=== PATIENT | female | born 1980 | race Caucasian/White ===

== ENCOUNTER 2019-01-11 06:39 | Emergency (ER) | payer OTHER ==
[~2019-01-11] VITALS: Ht 170.1 cm; Wt 121.6 kg
[~2019-01-11 06:39] MED LIST: ALBUTEROL0.09 MG/A2 IH; CIPRO500 MG PO; COMBIVENT1 ARO IH; DOXYCYCLINE MO100 MG PO; EUCERIN1 CRE TP; FIORICET 325 MG1 TAB PO; KEFLEX500 MG PO; MEDROL DOSEPAK4 MG PO; NAPROSYN500 MG PO; ROBITUSSIN AC 10 MG/ PO; TRAMADOL HCL50 MG PO; ULTRAM50 MG PO; VICODIN 5/500 505 MG PO; VOLTAREN50 M1 PO; ZOFRAN ODT4 MG SL; ZOFRAN4 MG PO
== END 2019-01-11 09:09 | disposition home or self-care (01) ==
LOC: ED 06:39
DX: S01.112A Laceration without foreign body of left eyelid and periocular area, initial encounter (principal); G43.909 Migraine, unspecified, not intractable, without status migrainosus; F17.200 Nicotine dependence, unspecified, uncomplicated; Z88.6 Allergy status to analgesic agent; Z91.040 Latex allergy status; Y08.89XA Assault by other specified means, initial encounter; Y93.89 Activity, other specified; Y92.89 Other specified places as the place of occurrence of the external cause; Y99.8 Other external cause status

== ENCOUNTER 2020-01-10 22:33 | Emergency (ER) | payer OTHER ==
[~2020-01-10] VITALS: Ht 170.1 cm; Wt 120.2 kg
[2020-01-10 23:17] LABS: BASO # 0.2 10*3/uL (0.0-0.1); EOS # 1.2 10*3/uL (0.0-0.4); EOS % 8.5 % (1.0-4.0); HEMATOCRIT 38.4 % (37.0-47.0); LYMPH # 3.2 10*3/uL (1.3-4.4); LYMPH % 22.3 % (27.0-41.0); MEAN CELL VOLUME 87.9 fl (81.0-99.0); MEAN CORPUSCULAR HGB 29.3 pg (27.0-31.0); MEAN CORPUSCULAR HGB CONC 33.3 g/dl (33.0-37.0); MEAN PLATELET VOLUME 8.9 fl (9.6-12.3); MONO # 1.1 10*3/uL (0.1-1.0); MONO % 7.8 % (3.0-9.0); NEUT # 8.5 10*3/uL (2.3-7.9); NEUT % 59.6 % (47.0-73.0); PLATELET COUNT AUTOMATED 363 10*3/uL (130-400); RED BLOOD COUNT 4.37 10*6/uL (4.10-5.10); RED CELL DISTRI WIDTH 13.7 % (0-14.5); WHITE BLOOD COUNT 14.3 10*3/uL (4.8-10.8)
[2020-01-10 23:32] LABS: ALBUMIN 3.3 gm/dl (3.1-4.5); ALKALINE PHOSPHATASE 65 U/L (45-117); BUN 9 mg/dl (7-24); CHLORIDE 109 mmol/L (98-107); CREATININE 0.77 mg/dL (0.55-1.02); LIPASE 110 U/L (73-393); POTASSIUM 3.7 mmol/L (3.5-5.1); SGOT/AST 13 IU/L (3-35); SGPT/ALT 30 U/L (12-78); SODIUM 140 mmol/L (136-145); TOTAL PROTEIN 7.3 gm/dL (6.4-8.2)
[2020-01-10 23:47] LABS: BILIRUBIN NEGATIVE (NEGATIVE); BLOOD TRACE-INTACT (NEGATIVE); CLARITY CLEAR (CLEAR); COLOR YELLOW (YELLOW); GLUCOSE NEGATIVE (NEGATIVE); KETONE NEGATIVE (NEGATIVE); NITRITE NEGATIVE (NEGATIVE); SPECIFIC GRAVITY 1.025 (1.005-1.030); UROBILINOGEN 0.2 E.U./dl (0.2-1.0)
[2020-01-10 23:48] LABS: LEUKO ESTERASE NEGATIVE (NEGATIVE)
[2020-01-10 23:53] LABS: BACTERIA 1+; WBC 0-2 wbc/hpf (0-5)
[2020-01-11] MEDS ORDERED: 3-DAY VAGINAL C21 GM V (00:04)
== END 2020-01-11 01:04 | disposition home or self-care (01) ==
LOC: ED 22:33
PROVIDERS: Physician Assistant
DX: S22.32XA Fracture of one rib, left side, initial encounter for closed fracture (principal); B37.3 Candidiasis of vulva and vagina; G43.909 Migraine, unspecified, not intractable, without status migrainosus; E03.9 Hypothyroidism, unspecified; Z88.6 Allergy status to analgesic agent; Z91.040 Latex allergy status; X58.XXXA Exposure to other specified factors, initial encounter; Y93.89 Activity, other specified; Y92.89 Other specified places as the place of occurrence of the external cause; Y99.8 Other external cause status

== ENCOUNTER → 2020-05-07 | Outpatient (CLI) | payer OTHER ==
[~2020-05-07] MED LIST changes: +3-DAY VAGINAL C21 GM V
[2020-05-07 14:17] LABS: HEMATOCRIT 40.4 % (37.0-47.0); MEAN CORPUSCULAR HGB 28.5 pg (27.0-31.0); MEAN CORPUSCULAR HGB CONC 32.4 g/dl (33.0-37.0); MEAN PLATELET VOLUME 8.8 fl (9.6-12.3); RED BLOOD COUNT 4.59 10*6/uL (4.10-5.10); RED CELL DISTRI WIDTH 13.5 % (0-14.5)
[2020-05-07 14:34] LABS: ALBUMIN 3.8 gm/dl (3.1-4.5); ALKALINE PHOSPHATASE 78 U/L (45-117); BUN 12 mg/dl (7-24); CHLORIDE 108 mmol/L (98-107); CHOLESTEROL 233 mg/dL (<200); CREATININE 0.91 mg/dL (0.55-1.02); HDL CHOLESTEROL 35 mg/dl (40-60); LDL CHOLESTEROL 155 mg/dL (9-159); POTASSIUM 3.8 mmol/L (3.5-5.1); SGOT/AST 18 IU/L (3-35); SGPT/ALT 31 U/L (12-78); SODIUM 135 mmol/L (136-145); TOTAL PROTEIN 8.1 gm/dL (6.4-8.2); TRIGLYCERIDES 214 mg/dl (<150); VLDL CHOLESTEROL 43 mg/dL (6-40)
[2020-05-07 14:36] LABS: FREE T4 0.97 ng/dl (0.76-1.46)
[2020-05-07 15:43] LABS: VITAMIN D, 25-HYDROXY 13.4 ng/mL (30-100)
[2020-05-08 09:09] LABS: RHEUMATOID ARTHRITIS FACTOR 11.4 IU/mL (0.0-13.9)
[2020-05-08 10:06] LABS: HEP B CORE AB, IGM Negative (Negative); HEPATITIS B SURFACE AG Negative (Negative); HEPATITIS C VIRUS ANTIBODY 0.5 s/co (0.0-0.9)
[2020-05-09 12:06] LABS: ANTI-DSDNA ANTIBODIES 1 IU/mL (0-9); ANTI-SMOOTH MUSCLE ANTIBODY 14 Units (0-19); SJOGREN ANTI-SS-A <0.2 AI (0.0-0.9); SJOREN AB, ANTI-SS-B <0.2 AI (0.0-0.9)
== END | disposition home or self-care (01) ==
LOC: LAB 13:34
PROVIDERS: ATTEND Family Medicine
DX: M79.10 Myalgia, unspecified site (principal); M10.9 Gout, unspecified; M25.50 Pain in unspecified joint; M54.5 Low back pain; E55.9 Vitamin D deficiency, unspecified

== ENCOUNTER → 2020-10-07 | Outpatient (CLI) | payer OTHER | END | disposition home or self-care (01) | LOC: US 08-29 09:30 | PROVIDERS: ATTEND Nurse Practitioner Family | DX: R10.84 Generalized abdominal pain (principal) ==

== ENCOUNTER → 2020-11-18 | Outpatient (CLI) | payer OTHER | END | disposition home or self-care (01) | LOC: COVID19 09:25 | PROVIDERS: ATTEND Internal Medicine Gastroenterology | DX: Z01.812 Encounter for preprocedural laboratory examination (principal); Z20.822 Contact with and (suspected) exposure to COVID-19 ==

== ENCOUNTER 2021-02-07 14:22 | Inpatient (IN) | payer OTHER ==
[~2021-02-07] VITALS: Ht 170.1 cm; Wt 129.3 kg
[2021-02-07 14:24] VITALS: BP 128/75
[2021-02-07 15:05] LABS: HEMATOCRIT 39.2 % (37.0-47.0); MEAN CELL VOLUME 87.7 fl (81.0-99.0); MEAN CORPUSCULAR HGB 28.4 pg (27.0-31.0); MEAN CORPUSCULAR HGB CONC 32.4 g/dl (33.0-37.0); PLATELET COUNT AUTOMATED 396 10*3/uL (130-400); RED BLOOD COUNT 4.47 10*6/uL (4.10-5.10); RED CELL DISTRI WIDTH 14.3 % (0-14.5); WHITE BLOOD COUNT 22.3 10*3/uL (4.8-10.8)
[2021-02-07 15:20] LABS: ALBUMIN 3.1 gm/dl (3.1-4.5); ALKALINE PHOSPHATASE 66 U/L (45-117); BUN 13 mg/dl (7-24); CHLORIDE 104 mmol/L (98-107); CREATININE 0.83 mg/dL (0.55-1.02); LIPASE 95 U/L (73-393); POTASSIUM 3.5 mmol/L (3.5-5.1); SGOT/AST 10 IU/L (3-35); SGPT/ALT 29 U/L (12-78); SODIUM 137 mmol/L (136-145); TOTAL PROTEIN 7.2 gm/dL (6.4-8.2)
[2021-02-07 15:21] LABS: BASOPHILS 1 % (0-1); TOTAL CELLS COUNTED 100 #CELLS
[2021-02-07 15:22] LABS: PLATELET SUFFICIENCY NORMAL (NORMAL)
[2021-02-07 15:28] LABS: BETA-HCG, QUANT < 1.0 mIU/mL (1-3)
[2021-02-07 15:41] LABS: BILIRUBIN Negative (Negative); BLOOD Negative (Negative); CLARITY Cloudy (Clear); COLOR Yellow (Yellow); GLUCOSE Negative (Negative); KETONE Negative (Negative); LEUKO ESTERASE Negative (Negative); NITRITE Negative (Negative); PH 5.5 (4.5-8.0); SPECIFIC GRAVITY >= 1.030 (1.001-1.030)
[2021-02-07 16:43] LABS: EPITHELIAL CELLS 31-40
[2021-02-07 16:44] LABS: BACTERIA 2+
[2021-02-07 17:16] VITALS: BP 94/51
[2021-02-07 17:31] VITALS: BP 110/69
[2021-02-07 17:46] VITALS: BP 108/70
[2021-02-07 18:01] VITALS: BP 110/64
[2021-02-07 18:16] VITALS: BP 112/66
[2021-02-07] MEDS ORDERED: CYMBALTA60 MG PO (18:41)
[2021-02-07] MEDS ORDERED: NEURONTIN300 MG PO (18:41)
[2021-02-07] MEDS ORDERED: DICYCLOMINE HYD20 MG PO (18:42)
[2021-02-07] MEDS ORDERED: OMEPRAZOLE40 MG PO (18:42)
[2021-02-07] MEDS ORDERED: PREDNISONE10 MG PO (18:43)
[2021-02-07] MEDS ORDERED: AMITRIPTYLINE25 MG PO (18:43)
[2021-02-08] VITALS: BP 120/54
[2021-02-08] MEDS ORDERED: CIPRO500 MG PO (07:27)
[2021-02-08 08:00] VITALS: BP 112/54
[2021-02-08 08:11] LABS: HEMATOCRIT 33.7 % (37.0-47.0); MEAN CELL VOLUME 89.2 fl (81.0-99.0); MEAN CORPUSCULAR HGB 28.3 pg (27.0-31.0); MEAN CORPUSCULAR HGB CONC 31.8 g/dl (33.0-37.0); MEAN PLATELET VOLUME 8.9 fl (9.6-12.3); PLATELET COUNT AUTOMATED 328 10*3/uL (130-400); RED BLOOD COUNT 3.78 10*6/uL (4.10-5.10); RED CELL DISTRI WIDTH 14.3 % (0-14.5); WHITE BLOOD COUNT 25.5 10*3/uL (4.8-10.8)
[2021-02-08 08:58] LABS: BASOPHILS 1 % (0-1); PLATELET SUFFICIENCY NORMAL (NORMAL); TOTAL CELLS COUNTED 100 #CELLS
[2021-02-08 12:00] VITALS: BP 113/82
== END 2021-02-08 13:49 | disposition home health service (06) | DRG 234 ==
LOC: ED 14:22 → 4E 15:49 → EDHOLD 15:49 → 4E 16:49
PROVIDERS: Emergency Medicine; ADMIT Internal Medicine; ATTEND Internal Medicine
PROC: 0DTJ4ZZ Resection of Appendix, Percutaneous Endoscopic Approach (ICD-10-PCS; principal; 2021-02-07)
DX: K35.80 Unspecified acute appendicitis (principal); G89.29 Other chronic pain; G62.9 Polyneuropathy, unspecified; F41.1 Generalized anxiety disorder; Z88.5 Allergy status to narcotic agent; Z91.040 Latex allergy status; Z82.49 Family history of ischemic heart disease and other diseases of the circulatory system

== ENCOUNTER 2021-02-11 21:16 | Emergency (ER) | payer OTHER ==
[~2021-02-11 21:16] MED LIST changes: +AMITRIPTYLINE25 MG PO; +CYMBALTA60 MG PO; +DICYCLOMINE HYD20 MG PO; +NEURONTIN300 MG PO; +OMEPRAZOLE40 MG PO; +PREDNISONE10 MG PO
[2021-02-11 22:40] LABS: HEMATOCRIT 35.2 % (37.0-47.0); MEAN CORPUSCULAR HGB 27.8 pg (27.0-31.0); MEAN CORPUSCULAR HGB CONC 31.5 g/dl (33.0-37.0); PLATELET COUNT AUTOMATED 417 10*3/uL (130-400); RED CELL DISTRI WIDTH 14.2 % (0-14.5); WHITE BLOOD COUNT 20.8 10*3/uL (4.8-10.8)
[2021-02-11 22:58] LABS: ALBUMIN 2.8 gm/dl (3.1-4.5); ALKALINE PHOSPHATASE 87 U/L (45-117); BUN 11 mg/dl (7-24); CHLORIDE 105 mmol/L (98-107); CREATININE 0.86 mg/dL (0.55-1.02); LIPASE 67 U/L (73-393); POTASSIUM 3.7 mmol/L (3.5-5.1); SGOT/AST 14 IU/L (3-35); SGPT/ALT 37 U/L (12-78); SODIUM 135 mmol/L (136-145)
[2021-02-11 23:01] LABS: ATYPICAL LYMPHS 4 % (0-0); BASOPHILS 1 % (0-1); TOTAL CELLS COUNTED 100 #CELLS
[2021-02-11 23:02] LABS: OVALOCYTES FEW; PLATELET SUFFICIENCY HIGH (NORMAL)
[2021-02-11 23:07] LABS: TROPONIN I < 0.015 ng/ml (<0.045)
== END 2021-02-12 03:07 | disposition left against medical advice (07) ==
LOC: ED 21:16
PROVIDERS: Physician Assistant
DX: G89.18 Other acute postprocedural pain (principal); R07.81 Pleurodynia; R06.02 Shortness of breath; M25.511 Pain in right shoulder; E03.9 Hypothyroidism, unspecified; G43.909 Migraine, unspecified, not intractable, without status migrainosus; Z87.42 Personal history of other diseases of the female genital tract; Z90.49 Acquired absence of other specified parts of digestive tract; Z91.040 Latex allergy status; Z88.5 Allergy status to narcotic agent; Z79.2 Long term (current) use of antibiotics; Z79.899 Other long term (current) drug therapy

== ENCOUNTER 2024-04-26 18:46 | Emergency (ER) | payer MEDICARE ==
[~2024-04-26] VITALS: Ht 170.1 cm; Wt 12.2 kg
[2024-04-26] MEDS ORDERED: SODIUM CHLORIDE 0.9% 1,000 ML IV ONE (19:10)
[2024-04-26] MEDS ORDERED: Ondansetron Hydrochloride 4 MG/2 ML VIAL IV ONE (19:10)
[2024-04-26 19:30] LABS: BASO # 0.2 10*3/uL (0.0-0.1); BASO % 1.1 % (0.0-1.0); EOS % 4.7 % (1.0-4.0); HEMATOCRIT 40.3 % (37.0-47.0); LYMPH # 4.1 10*3/uL (1.3-4.4); LYMPH % 20.2 % (27.0-41.0); MEAN CELL VOLUME 87.2 fl (81.0-99.0); MEAN CORPUSCULAR HGB 28.1 pg (27.0-31.0); MEAN CORPUSCULAR HGB CONC 32.3 g/dl (33.0-37.0); MEAN PLATELET VOLUME 8.8 fl (9.6-12.3); MONO # 1.4 10*3/uL (0.1-1.0); MONO % 6.9 % (3.0-9.0); NEUT # 13.5 10*3/uL (2.3-7.9); PLATELET COUNT AUTOMATED 386 10*3/uL (130-400); RED BLOOD COUNT 4.62 10*6/uL (4.10-5.10); RED CELL DISTRI WIDTH 14.1 % (0-14.5); WHITE BLOOD COUNT 20.4 10*3/uL (4.8-10.8)
[2024-04-26 19:38] LABS: BILIRUBIN Negative (Negative); BLOOD Negative (Negative); CLARITY Clear (Clear); COLOR Yellow (Yellow); GLUCOSE Negative (Negative); KETONE Negative (Negative); LEUKO ESTERASE Negative (Negative); NITRITE Negative (Negative); PH 7.5 (4.5-8.0); UROBILINOGEN 0.2 E.U./dl (0.0-1.0)
[2024-04-26 19:47] LABS: BACTERIA 1+; RBC 0-2 rbc/hpf (0-2)
[2024-04-26 19:54] LABS: ALKALINE PHOSPHATASE 64 U/L (46-116); BUN 11 mg/dl (9-23); CHLORIDE 105 mmol/L (98-107); LIPASE 40 U/L (12-53); POTASSIUM 3.8 mmol/L (3.4-5.1); SGPT/ALT 11 U/L (5-49); TOTAL PROTEIN 6.9 gm/dL (6.0-8.0)
[2024-04-26] MEDS ORDERED: VIBRAMYCIN100 MG PO (21:50)
[2024-04-26] MEDS ORDERED: Doxycycline Hyclate 100 MG CAP PO ONE (21:55)
== END 2024-04-26 22:00 | disposition home or self-care (01) ==
LOC: ED 18:46
PROVIDERS: Nurse Practitioner Family
DX: S41.101A Unspecified open wound of right upper arm, initial encounter (principal); L03.111 Cellulitis of right axilla; R11.0 Nausea; R10.9 Unspecified abdominal pain; G43.909 Migraine, unspecified, not intractable, without status migrainosus; E03.9 Hypothyroidism, unspecified; Z88.5 Allergy status to narcotic agent; Z91.040 Latex allergy status; Z87.891 Personal history of nicotine dependence; X58.XXXA Exposure to other specified factors, initial encounter; Y93.89 Activity, other specified; Y92.009 Unspecified place in unspecified non-institutional (private) residence as the place of occurrence of the external cause; Y99.8 Other external cause status